=== PATIENT | female | born 2000 | race African-American/Black ===

== ENCOUNTER 2022-12-29 13:53 | Outpatient (CLI) | payer BC | END 2022-12-29 13:54 | disposition home or self-care (01) | LOC: SCSMRI 13:53 | PROVIDERS: ATTEND Family Medicine | DX: H53.2 Diplopia (principal); R42 Dizziness and giddiness; R25.9 Unspecified abnormal involuntary movements; Z87.898 Personal history of other specified conditions | CPT/HCPCS: 70551 ==